=== PATIENT | male | born 1990 | race Caucasian/White ===

== ENCOUNTER 2021-09-10 17:04 | Emergency (ER) | payer OTHER ==
[~2021-09-10] VITALS: Ht 180.3 cm; Wt 123.4 kg
[~2021-09-10 17:04] MED LIST: LEVEMIR100 UNIT/1 SQ; NEXIUM20 M1 PO
[2021-09-10] MEDS ORDERED: PROVENTIL HFA6.7 GM INH (22:25)
== END 2021-09-10 22:43 | disposition home or self-care (01) ==
LOC: ER1 17:04
DX: U07.1 COVID-19 (principal); Z23 Encounter for immunization
CPT/HCPCS: 99284; M0243